=== PATIENT | female | born 1945 | race African-American/Black ===

== ENCOUNTER → 2019-01-02 | Day surgery (SDC) | payer MEDICARE ==
--- OUTSIDE RECORDS SUMMARY | 2019-01-02 09:05 | XMS REPORT ---
:1945 Author Organization [facility] Address [address] [place] [address] [address] [place] [address] Care Team Providers Name Role Phone Unavailable Unavailable Unavailable Problems This patient has no known problems. Allergies, Adverse Reactions, Alerts This patient has no known allergies or adverse reactions. Medications This patient has no known medications.
--- NOTE | 2019-01-02 12:26 | RAD REPORT ---
EXAM DESCRIPTION: US - Guided FNA Non Breast - 01/02/2019 10:36 am CLINICAL HISTORY: Thyroid nodule ICD E04.2 COMPARISON: Not available TECHNIQUE: Risks, benefits and alternatives of procedure explained to the patient and informed conse nt obtained. Skin and subcutaneous tissues anesthetized with lidocaine. Under sonographic guidance, seven 25 gauge needle passes were obtained into the large dominant nodule within the left lobe of the thyroid gland. . Specimens given to pathology. Patient experienced no immediate complication IMPRESSION: Fine-needle aspiration of a dominant nodule within left lobe of thyroid gland
--- NOTE | 2019-01-02 12:27 | RAD REPORT ---
EXAM DESCRIPTION: US - Guided FNA Non Breast - 01/02/2019 10:36 am CLINICAL HISTORY: E04.2 COMPARISON: Not available TECHNIQUE: Risks, benefits and alternatives of procedure explained to the patient and informed conse nt obtained. Skin and subcutaneous tissues anesthetized with lidocaine. Under sonographic guidance, seven 25 gauge needle passes were obtained into the dominant nodule withi n the lower pole of the right lobe of the thyroid gland Specimens given to pathology. Patient experienced no immediate complication IMPRESSION: Fine-needle aspiration of a dominant nodule within right lobe of thyroid gland
== END | disposition home or self-care (01) ==
LOC: FNA 08:58
PROVIDERS: ATTEND Otolaryngology
PROC: 0G9K3ZX Drainage of Thyroid Gland, Percutaneous Approach, Diagnostic (ICD-10-PCS; principal; 2019-01-02)
PROC: BG44ZZZ Ultrasonography of Thyroid Gland (ICD-10-PCS; 2019-01-02)
DX: E04.2 Nontoxic multinodular goiter (principal)
CPT/HCPCS: 88162